=== PATIENT | male | born 2005 | race Caucasian/White ===

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

== ENCOUNTER 2025-07-27 20:40 | Emergency (ER) | payer BC, OTHER ==
[~2025-07-27] VITALS: Ht 193 cm; Wt 172.4 kg
[~2025-07-27 20:40] MED LIST changes: +FLUTICASONE PRO16 GM; +HYDROXYZINE PAM25 MG PO; +RIZATRIPTAN10 MG SL; +Ventolin/Prove6.7 GM INH
[2025-07-27] MEDS ORDERED: Ketorolac Tromethamine 15mg Vial IM ONE (21:45)
[2025-07-28] MEDS ORDERED: Robaxin750 MG PO ×2 (00:45→01:02)
[2025-07-28] MEDS ORDERED: LIDO700A20 TOP ×2 (00:45→01:02)
[2025-07-28] MEDS ORDERED: Lidocaine 4% 1 Patch TOP ONE (00:45)
[2025-07-28] MEDS ORDERED: Voltaren100 GM TOP ×2 (00:45→01:02)
[2025-07-28 01:06] VITALS: BP 126/98
== END 2025-07-28 01:12 | disposition home or self-care (01) ==
LOC: ER 20:40
DX: S39.012A Strain of muscle, fascia and tendon of lower back, initial encounter (principal); J45.909 Unspecified asthma, uncomplicated; X58.XXXA Exposure to other specified factors, initial encounter; Z79.51 Long term (current) use of inhaled steroids; Z79.899 Other long term (current) drug therapy; Z88.0 Allergy status to penicillin; Z88.1 Allergy status to other antibiotic agents
CPT/HCPCS: 96372; 99283-25; A9270; J1885